=== PATIENT | male | born 1985 | race Caucasian/White ===

== ENCOUNTER 2017-06-29 09:01 | Day surgery (SDC) | payer BC, OTHER ==
[2017-06-29] MEDS ORDERED: Ondansetron 4 MG/2 ML SDV IVPUSH ONE (09:09)
[2017-06-29] MEDS ORDERED: Sodium Chloride 0.9% 1,000 ML IV ONE (09:09)
[2017-06-29] MEDS ORDERED: Ketorolac 30 MG/ML SDV IVPUSH ONE (09:09)
[2017-06-29] MEDS ORDERED: Sodium Chloride 0.9% 10 ML Syringe FLUSH PRN (09:09)
--- NOTE | 2017-06-29 09:29 | EDM.PDOC ---
ED HPI GENERAL MEDICAL PROBLEM - General Chief Complaint: Abdominal Pain Stated Complaint: ABDOMINAL PAIN Time Seen by Provider: 06/29/17 09:09 Source of Information: Reports: Patient History Limitations: Reports: No Limitations - History of Present Illness INITIAL COMMENTS - FREE TEXT/NARRATIVE: 32 y/o M with abd pain. Started 6-7 hours ago. Initially diffuse, now worse on R side. Dull. Waxes and wanes. Worse with movement. +anorexia this AM. No fever. No vomiting. No diarrhea. Normal BM today. No dysuria/hematuria. No hx similar symptoms previously. No cough/CP. Pain is currently moderate to severe. Right Abdominal Pain Score (Numeric/FACES): 4 - Related Data Allergies Allergy/AdvReac Type Severity Reaction Status Date / Time No Known Allergies Allergy Verified 06/29/17 09:12 Home Meds: Home Meds Losartan [Cozaar] 50 mg PO DAILY 06/29/17 [History] Methylphenidate [Concerta] 54 mg PO DAILY 06/29/17 [History] Topiramate [Topamax] 25 mg PO BID 06/29/17 [History] atorvaSTATin [Lipitor] 20 mg PO DAILY 06/29/17 [History] metFORMIN [Glucophage XR] 1,000 mg PO DAILY 06/29/17 [History] ED ROS GENERAL - Review of Systems Review Of Systems: See Below Constitutional: Denies: Fever Respiratory: Denies: Shortness of Breath, Cough Cardiovascular: Denies: Chest Pain Endocrine: Reports: No Symptoms GI/Abdominal: Reports: Abdominal Pain : Denies: Dysuria, Flank Pain, Hematuria Musculoskeletal: Reports: No Symptoms Neurological: Reports: No Symptoms ED EXAM, GI/ABD - Physical Exam Exam: See Below Exam Limited By: No Limitations General Appearance: Alert, WD/WN, No Apparent Distress Eyes: Bilateral: Normal Appearance Ears: Normal External Exam Nose: Normal Inspection Throat/Mouth: Normal Inspection, Normal Oropharynx, Normal Voice Head: Atraumatic, Normocephalic Neck: Normal Inspection, Supple, Non-Tender Respiratory/Chest: No Respiratory Distress, Lungs Clear, No Accessory Muscle Use , Chest Non-Tender Cardiovascular: Normal Peripheral Pulses, Regular Rate, Rhythm, No Murmur GI/Abdominal Exam: Soft, Other (diffusely tender, most tender in RLQ, +rebound, no guarding) Back Exam: Normal Inspection Extremities: Normal Inspection Neurological: Alert, Oriented Psychiatric: Normal Affect, Normal Mood Skin Exam: Warm, Dry, Normal Color, No Rash Course - Vital Signs Last Recorded V/S: Last Vital Signs Temp 36.1 C 06/29/17 09:09 Pulse 94 06/29/17 09:09 Resp 16 06/29/17 09:09 BP 127/92 H 06/29/17 09:09 Pulse Ox 100 06/29/17 09:09 - Orders/Labs/Meds Orders: Active Orders 24 hr Category Date Time Status Peripheral IV Care [RC] . DIRECTED Care 06/29/17 09:09 Active Morphine Med 06/29/17 09:36 Active 4 mg IVPUSH Q2H PRN Piperacillin/Tazobactam [Zosyn] 4.5 gm Med 06/29/17 11:34 Active Sodium Chloride 0.9% [Normal Saline] 100 ml IV ONETIME Sodium Chloride 0.9% [Saline Flush] Med 06/29/17 09:09 Active 10 ml FLUSH ASDIRECTED PRN Peripheral IV Insertion Adult [OM.PC] Routine Oth 06/29/17 09:09 Ordered Medication Orders Piperacillin Sod/Tazobactam (Sod 4.5 gm/ Sodium Chloride) 100 mls @ 200 mls/hr IV ONETIME ONE Stop: 06/29/17 12:03 Morphine Sulfate (Morphine) 4 mg IVPUSH Q2H PRN PRN Reason: Pain Sodium Chloride (Saline Flush) 10 ml FLUSH ASDIRECTED PRN PRN Reason: Keep Vein Open Last Admin: 06/29/17 09:35 Dose: 10 ml Labs: Laboratory Tests 06/29/17 06/29/17 06/29/17 Range/Units 09:20 09:20 10:26 WBC 15.86 H (4.23-9.07) K/mm3 RBC 5.56 (4.63-6.08) M/mm3 Hgb 15.9 (13.7-17.5) gm/L Hct 44.8 (40.1-51.0) % MCV 80.6 (79.0-92.2) fl MCH 28.6 (25.7-32.2) pg MCHC 35.5 (32.2-35.5) g/dl RDW Std Deviation 35.9 (35.1-43.9) fL Plt Count 329 (163-337) K/mm3 MPV 10.4 (9.4-12.3) fl Neut % (Auto) 74.8 H (34.0-67.9) % Lymph % (Auto) 17.0 L (21.8-53.1) % [place] % (Auto) 6.5 (5.3-12.2) % Eos % (Auto) 1.1 (0.8-7.0) Baso % (Auto) 0.3 (0.1-1.2) % Neut # (Auto) 11.88 H (1.78-5.38) K/mm3 Lymph # (Auto) 2.70 (1.32-3.57) K/mm3 [place] # (Auto) 1.03 H (0.30-0.82) K/mm3 Eos # (Auto) 0.17 (0.04-0.54) K/mm3 Baso # (Auto) 0.04 (0.01-0.08) K/mm3 Sodium 140 (136-145) mEq/L Potassium 4.0 (3.5-5.1) mEq/L Chloride 104 (98-107) mEq/L Carbon Dioxide 26 (21-32) mEq/L Anion Gap 14.0 (5-15) BUN 16 (7-18) mg/dL Creatinine 1.0 (0.7-1.3) mg/dL Est Cr Clr Drug Dosing 115.32 mL/min Estimated GFR (MDRD) > 60 (>60) mL/min BUN/Creatinine Ratio 16.0 (14-18) Glucose 107 H (74-106) mg/dL Calcium 9.0 (8.5-10.1) mg/dL Total Bilirubin 0.6 (0.2-1.0) mg/dL AST 41 H (15-37) U/L ALT 93 H (16-63) U/L Alkaline Phosphatase 91 (46-116) U/L Total Protein 8.1 (6.4-8.2) g/dl Albumin 4.5 (3.4-5.0) g/dl Globulin 3.6 gm/dL Albumin/Globulin Ratio 1.3 (1-2) Lipase 139 (73-393) U/L Urine Color Light yellow (Yellow) Urine Appearance Clear (Clear) Urine pH 6.0 (5.0-8.0) Ur Specific [place] 1.010 (1.005-1.030) Urine Protein Negative (Negative) Urine Glucose (UA) Negative (Negative) Urine Ketones Negative (Negative) Urine Occult Blood Negative (Negative) Urine Nitrite Negative (Negative) Urine Bilirubin Negative (Negative) Urine Urobilinogen 0.2 (0.2-1.0) Ur Leukocyte Esterase Negative (Negative) Urine RBC Not seen (0-5) /hpf Urine WBC Not seen (0-5) /hpf Ur Epithelial Cells 0-5 (0-5) /hpf Urine Bacteria Not seen (FEW) /hpf Urine Mucus Not seen (FEW) /hpf Meds: Medications Generic Name Dose Route Start Last Admin Trade Name Freq PRN Reason Stop Dose Admin Piperacillin Sod/Tazobactam 100 mls @ 200 mls/hr 06/29/17 11:34 Sod 4.5 gm/ Sodium Chloride IV 06/29/17 12:03 ONETIME ONE Morphine Sulfate 4 mg 06/29/17 09:36 Morphine IVPUSH Q2H PRN Pain Sodium Chloride 10 ml 06/29/17 09:09 06/29/17 09:35 Saline Flush FLUSH 10 ml ASDIRECTED PRN Administration Keep Vein Open Discontinued Medications Generic Name Dose Route Start Last Admin Trade Name Freq PRN Reason Stop Dose Admin Sodium Chloride 1,000 mls @ 1,000 mls/hr 06/29/17 09:09 06/29/17 09:33 Normal Saline IV 06/29/17 10:08 1,000 mls/hr ONETIME ONE Administration Iopamidol 100 ml 06/29/17 09:36 06/29/17 09:43 Isovue-370 (76%) IVPUSH 06/29/17 09:37 100 ml ONETIME ONE Administration Ketorolac Tromethamine 30 mg 06/29/17 09:09 06/29/17 09:34 Toradol IVPUSH 06/29/17 09:10 30 mg ONETIME ONE Administration Ondansetron HCl 4 mg 06/29/17 09:09 06/29/17 09:35 Zofran IVPUSH 06/29/17 09:10 4 mg ONETIME ONE Administration Sodium Chloride 10 ml 06/29/17 09:36 06/29/17 09:44 Saline Flush FLUSH 06/29/17 09:37 10 ml ONETIME ONE Administration - Re-Assessments/Exams Free Text/Narrative Re-Assessment/Exam: 06/29/17 11:34 CT a/p consistent with early appendicitis. WBC elevated at 15,000. Antibiotics ordered. Message left for Dr. Bob who is in the OR and will call back when able. 06/29/17 11:35 06/29/17 11:52 Departure - Departure Time of Disposition: 11:50 Disposition: DC/Tfer to [facility] Clinical Impression: Appendicitis, acute Qualifiers: Acute appendicitis type: with localized peritonitis Qualified Code(s): K35.3 - Acute appendicitis with localized peritonitis - Discharge Information Referrals: Dilip Jensen MD [Primary Care Provider] - Forms: ED Department Discharge - My Orders Last 24 Hours: My Active Orders 06/29/17 09:09 Peripheral IV Care [RC] . DIRECTED Sodium Chloride 0.9% [Saline Flush] 10 ml FLUSH ASDIRECTED PRN Peripheral IV Insertion Adult [OM.PC] Routine 06/29/17 09:36 Morphine 4 mg IVPUSH Q2H PRN 06/29/17 11:34 Piperacillin/Tazobactam [Zosyn] 4.5 gm Sodium Chloride 0.9% [Normal Saline] 100 ml IV ONETIME - Assessment/Plan Last 24 Hours: My Active Orders 06/29/17 09:09 Peripheral IV Care [RC] . DIRECTED Sodium Chloride 0.9% [Saline Flush] 10 ml FLUSH ASDIRECTED PRN Peripheral IV Insertion Adult [OM.PC] Routine 06/29/17 09:36 Morphine 4 mg IVPUSH Q2H PRN 06/29/17 11:34 Piperacillin/Tazobactam [Zosyn] 4.5 gm Sodium Chloride 0.9% [Normal Saline] 100 ml IV ONETIME
[2017-06-29] MEDS ORDERED: Iopamidol 755 Mg/ML 100 ML Bottle IVPUSH ONE (09:36)
[2017-06-29] MEDS ORDERED: Sodium Chloride 0.9% 10 ML Syringe FLUSH ONE (09:36)
[2017-06-29] MEDS ORDERED: Morphine 4 MG/ML Syringe IVPUSH PRN (09:36)
--- NOTE | 2017-06-29 10:35 | CT ---
CT abdomen and pelvis Technique: Multiple axial sections were obtained from above the dome of the diaphragm inferiorly through the pubic symphysis. Intravenous contrast was utilized. No oral contrast was given which diminishes evaluation of the bowel and processes around the bowel. Findings: Appendix is slightly prominent in size with mild inflammatory change. These findings are felt compatible with early appendicitis. Visualized lung bases show nothing acute. Liver shows diminished density compatible with fatty infiltration. Spleen appears normal. Adrenal glands show no nodule. Pancreas is within normal limits. Aorta shows no aneurysmal dilatation. Kidneys show symmetric contrast enhancement without hydronephrosis or mass. Aorta shows no aneurysmal dilatation. No retroperitoneal adenopathy or mesenteric abnormalities are seen. No pelvic mass or adenopathy is seen. Delayed images show contrast within the bladder. Bone window settings were reviewed which appear within normal limits for the patient's age. Impression: 1. Findings felt compatible with early appendicitis. 2. Liver shows fatty infiltration. 3. Other portions of the CT exam of the abdomen and pelvis appear within normal limits. Diagnostic code #5
[2017-06-29] MEDS ORDERED: Piperacillin/Tazobactam 4.5 GM in Sodium Chloride 0.9% 100 ML IV ONE (11:34)
[2017-06-29] MEDS ORDERED: Bupivacaine 0.5%/EPINEPHrine 1:200,000 50 ML MDV ONE (12:04)
[2017-06-29] MEDS ORDERED: Lidocaine 1% with EPINEPHrine 1:100,000 20 ML MDV ONE (12:04)
--- NOTE | 2017-06-29 12:18 | PCM.PREANE ---
Preanesthetic Assessment - Procedure Proposed Procedure: Lap Appendectomy - Anesthesia/Transfusion/Family Hx Anesthesia History: Prior Anesthesia Without Reaction Family History of Anesthesia Reaction: No Transfusion History: No Prior Transfusion(s) Intubation History: Unknown - Review of Systems General: No Symptoms Pulmonary: No Symptoms Cardiovascular: No Symptoms Gastrointestinal: No Symptoms, Diarrhea Neurological: No Symptoms, Numbness (bilateral hands, ) Other: Reports: Diabetes (pre-diabetes ) - Physical Assessment NPO Status Date: 06/29/17 NPO Status Time: 07:30 O2 Sat by Pulse Oximetry: 100 Respiratory Rate: 16 Vital Signs: Last Vital Signs Temp 36.1 C 06/29/17 09:09 Pulse 94 06/29/17 09:09 Resp 16 06/29/17 09:09 BP 127/92 H 06/29/17 09:09 Pulse Ox 100 06/29/17 09:09 Height: 1.83 m Weight: 97.522 kg ASA Class: 2E Mental Status: Alert & Oriented x3 Airway Class: Mallampati = 2 Dentition: Reports: Normal Dentition Thyro-Mental Finger Breadths: 3 Mouth Opening Finger Breadths: 5 ROM/Head Extension: Full Lungs: Clear to Auscultation, Normal Respiratory Effort Cardiovascular: Regular Rate, Regular Rhythm - Lab Values: Laboratory Last Values WBC 15.86 K/mm3 (4.23-9.07) H 06/29/17 09:20 RBC 5.56 M/mm3 (4.63-6.08) 06/29/17 09:20 Hgb 15.9 gm/L (13.7-17.5) 06/29/17 09:20 Hct 44.8 % (40.1-51.0) 06/29/17 09:20 MCV 80.6 fl (79.0-92.2) 06/29/17 09:20 MCH 28.6 pg (25.7-32.2) 06/29/17 09:20 MCHC 35.5 g/dl (32.2-35.5) 06/29/17 09:20 RDW Std Deviation 35.9 fL (35.1-43.9) 06/29/17 09:20 Plt Count 329 K/mm3 (163-337) 06/29/17 09:20 MPV 10.4 fl (9.4-12.3) 06/29/17 09:20 Neut % (Auto) 74.8 % (34.0-67.9) H 06/29/17 09:20 Lymph % (Auto) 17.0 % (21.8-53.1) L 06/29/17 09:20 [place] % (Auto) 6.5 % (5.3-12.2) 06/29/17 09:20 Eos % (Auto) 1.1 (0.8-7.0) 06/29/17 09:20 Baso % (Auto) 0.3 % (0.1-1.2) 06/29/17 09:20 Neut # (Auto) 11.88 K/mm3 (1.78-5.38) H 06/29/17 09:20 Lymph # (Auto) 2.70 K/mm3 (1.32-3.57) 06/29/17 09:20 [place] # (Auto) 1.03 K/mm3 (0.30-0.82) H 06/29/17 09:20 Eos # (Auto) 0.17 K/mm3 (0.04-0.54) 06/29/17 09:20 Baso # (Auto) 0.04 K/mm3 (0.01-0.08) 06/29/17 09:20 Sodium 140 mEq/L (136-145) 06/29/17 09:20 Potassium 4.0 mEq/L (3.5-5.1) 06/29/17 09:20 Chloride 104 mEq/L (98-107) 06/29/17 09:20 Carbon Dioxide 26 mEq/L (21-32) 06/29/17 09:20 Anion Gap 14.0 (5-15) 06/29/17 09:20 BUN 16 mg/dL (7-18) 06/29/17 09:20 Creatinine 1.0 mg/dL (0.7-1.3) 06/29/17 09:20 Est Cr Clr Drug Dosing 115.32 mL/min 06/29/17 09:20 Estimated GFR (MDRD) > 60 mL/min (>60) 06/29/17 09:20 BUN/Creatinine Ratio 16.0 (14-18) 06/29/17 09:20 Glucose 107 mg/dL (74-106) H 06/29/17 09:20 Calcium 9.0 mg/dL (8.5-10.1) 06/29/17 09:20 Total Bilirubin 0.6 mg/dL (0.2-1.0) 06/29/17 09:20 AST 41 U/L (15-37) H 06/29/17 09:20 ALT 93 U/L (16-63) H 06/29/17 09:20 Alkaline Phosphatase 91 U/L (46-116) 06/29/17 09:20 Total Protein 8.1 g/dl (6.4-8.2) 06/29/17 09:20 Albumin 4.5 g/dl (3.4-5.0) 06/29/17 09:20 Globulin 3.6 gm/dL 06/29/17 09:20 Albumin/Globulin Ratio 1.3 (1-2) 06/29/17 09:20 Lipase 139 U/L (73-393) 06/29/17 09:20 Urine Color Light yellow (Yellow) 06/29/17 10:26 Urine Appearance Clear (Clear) 06/29/17 10:26 Urine pH 6.0 (5.0-8.0) 06/29/17 10:26 Ur Specific [place] 1.010 (1.005-1.030) 06/29/17 10:26 Urine Protein Negative (Negative) 06/29/17 10:26 Urine Glucose (UA) Negative (Negative) 06/29/17 10:26 Urine Ketones Negative (Negative) 06/29/17 10:26 Urine Occult Blood Negative (Negative) 06/29/17 10:26 Urine Nitrite Negative (Negative) 06/29/17 10:26 Urine Bilirubin Negative (Negative) 06/29/17 10:26 Urine Urobilinogen 0.2 (0.2-1.0) 06/29/17 10:26 Ur Leukocyte Esterase Negative (Negative) 06/29/17 10:26 Urine RBC Not seen /hpf (0-5) 06/29/17 10:26 Urine WBC Not seen /hpf (0-5) 06/29/17 10:26 Ur Epithelial Cells 0-5 /hpf (0-5) 06/29/17 10:26 Urine Bacteria Not seen /hpf (FEW) 06/29/17 10:26 Urine Mucus Not seen /hpf (FEW) 06/29/17 10:26 - Allergies Allergies/Adverse Reactions: Allergies Allergy/AdvReac Type Severity Reaction Status Date / Time No Known Allergies Allergy Verified 06/29/17 09:12 - Blood Blood Available: No - Anesthesia Plan Pre-Op Medication Ordered: None - Acknowledgements Anesthesia Type Planned: General Anesthesia Pt an Appropriate Candidate for the Planned Anesthesia: Yes Alternatives and Risks of Anesthesia Discussed w Pt/Guardian: Yes Pt/Guardian Understands and Agrees with Anesthesia Plan: Yes PreAnesthesia Questionnaire - Past Health History Medical/Surgical History: Denies Medical/Surgical History Cardiovascular History: Reports: Hypertension Neurological History: Reports: Other (See Below) (pt reports ADHD) Endocrine/Metabolic History: Reports: Diabetes, Type II (pre-diabetes) - SUBSTANCE USE Smoking Status *Q: Never Smoker Recreational Drug Use History: No - HOME MEDS Home Medications: Home Meds Losartan [Cozaar] 50 mg PO DAILY 06/29/17 [History] Methylphenidate [Concerta] 54 mg PO DAILY 06/29/17 [History] Topiramate [Topamax] 25 mg PO BID 06/29/17 [History] atorvaSTATin [Lipitor] 20 mg PO DAILY 06/29/17 [History] metFORMIN [Glucophage XR] 1,000 mg PO DAILY 06/29/17 [History] - CURRENT (IN HOUSE) MEDS Current Meds: Current Medications Morphine Sulfate (Morphine) 4 mg IVPUSH Q2H PRN PRN Reason: Pain Sodium Chloride (Saline Flush) 10 ml FLUSH ASDIRECTED PRN PRN Reason: Keep Vein Open Last Admin: 06/29/17 09:35 Dose: 10 ml Discontinued Medications Sodium Chloride (Normal Saline) 1,000 mls @ 1,000 mls/hr IV ONETIME ONE Stop: 06/29/17 10:08 Last Admin: 06/29/17 09:33 Dose: 1,000 mls/hr Piperacillin Sod/Tazobactam (Sod 4.5 gm/ Sodium Chloride) 100 mls @ 200 mls/hr IV ONETIME ONE Stop: 06/29/17 12:03 Last Admin: 06/29/17 12:00 Dose: 200 mls/hr Iopamidol (Isovue-370 (76%)) 100 ml IVPUSH ONETIME ONE Stop: 06/29/17 09:37 Last Admin: 06/29/17 09:43 Dose: 100 ml Ketorolac Tromethamine (Toradol) 30 mg IVPUSH ONETIME ONE Stop: 06/29/17 09:10 Last Admin: 06/29/17 09:34 Dose: 30 mg Ondansetron HCl (Zofran) 4 mg IVPUSH ONETIME ONE Stop: 06/29/17 09:10 Last Admin: 06/29/17 09:35 Dose: 4 mg Sodium Chloride (Saline Flush) 10 ml FLUSH ONETIME ONE Stop: 06/29/17 09:37 Last Admin: 06/29/17 09:44 Dose: 10 ml
[2017-06-29] MEDS ORDERED: Propofol 200 MG/20 ML SDV ONE ×2 (12:45→12:46)
[2017-06-29] MEDS ORDERED: fentaNYL 250 MCG/5 ML SDV ONE (12:46)
[2017-06-29] MEDS ORDERED: Midazolam 1 MG/ML 2 ML SDV ONE (12:46)
[2017-06-29] MEDS ORDERED: Lidocaine 1% 4 ML ONE (12:49)
--- NOTE | 2017-06-29 12:51 | PCM.HP ---
H&P History of Present Illness - General Date of Service: 06/29/17 Admit Problem/Dx: Admission Diagnosis/Problem Admission Diagnosis/Problem Appendicitis Source of Information: Patient - History of Present Illness Initial Comments - Free Text/Narative: 32-year-old male was in his usual state of good health until early this morning at about 2 AM when he experienced periumbilical abdominal discomfort. The discomfort worsened overnight and ultimately migrated to his right lower quadrant. The pain was not associated with anorexia nausea and emesis but his told him to go to the emergency room to be seen and evaluated. He was seen by staff and a CT scan was performed which revealed acute appendicitis. I was asked to see him for surgery. Right Abdominal Pain Score (Numeric/FACES): 4 - Related Data Allergies/Adverse Reactions: Allergies Allergy/AdvReac Type Severity Reaction Status Date / Time No Known Allergies Allergy Verified 06/29/17 09:12 Home Medications: Home Meds Losartan [Cozaar] 50 mg PO DAILY 06/29/17 [History] Methylphenidate [Concerta] 54 mg PO DAILY 06/29/17 [History] Topiramate [Topamax] 25 mg PO BID 06/29/17 [History] atorvaSTATin [Lipitor] 20 mg PO DAILY 06/29/17 [History] metFORMIN [Glucophage XR] 1,000 mg PO DAILY 06/29/17 [History] Past Medical History - Past Health History Medical/Surgical History: Denies Medical/Surgical History Cardiovascular History: Reports: Hypertension Neurological History: Reports: Other (See Below) (pt reports ADHD) Endocrine/Metabolic History: Reports: Diabetes, Type II (pre-diabetes) Social & Family History - Tobacco Use Smoking Status *Q: Never Smoker - Caffeine Use Caffeine Use: Reports: Coffee - Recreational Drug Use Recreational Drug Use: No H&P Review of Systems - Review of Systems: Review Of Systems: ROS reveals no pertinent complaints other than HPI. Exam - Exam Exam: See Below - Vital Signs Vital Signs: Last Vital Signs Temp 36.1 C 06/29/17 09:09 Pulse 94 06/29/17 09:09 Resp 16 06/29/17 12:21 BP 127/92 H 06/29/17 09:09 Pulse Ox 100 06/29/17 12:21 Weight: 97.522 kg - Exam General: Alert, Oriented, Cooperative HEENT: EOMI, Hearing Intact Neck: Supple, Trachea Midline Lungs: Clear to Auscultation, Normal Respiratory Effort Cardiovascular: Regular Rate, Regular Rhythm, Normal S1, Normal S2 GI/Abdominal Exam: Other (Right lower quadrant abdominal tenderness) (Male) Exam: Deferred Rectal (Males) Exam: Deferred Skin: Warm, Dry, Intact Neuro Extensive - Mental Status: Alert, Oriented x3, Normal Mood/Affect Psychiatric: Alert, Normal Affect, Normal Mood - Patient Data Lab Results Last 24 hrs: Laboratory Results - last 24 hr 06/29/17 06/29/17 06/29/17 Range/Units 09:20 09:20 10:26 WBC 15.86 H (4.23-9.07) K/mm3 RBC 5.56 (4.63-6.08) M/mm3 Hgb 15.9 (13.7-17.5) gm/L Hct 44.8 (40.1-51.0) % MCV 80.6 (79.0-92.2) fl MCH 28.6 (25.7-32.2) pg MCHC 35.5 (32.2-35.5) g/dl RDW Std Deviation 35.9 (35.1-43.9) fL Plt Count 329 (163-337) K/mm3 MPV 10.4 (9.4-12.3) fl Neut % (Auto) 74.8 H (34.0-67.9) % Lymph % (Auto) 17.0 L (21.8-53.1) % [place] % (Auto) 6.5 (5.3-12.2) % Eos % (Auto) 1.1 (0.8-7.0) Baso % (Auto) 0.3 (0.1-1.2) % Neut # (Auto) 11.88 H (1.78-5.38) K/mm3 Lymph # (Auto) 2.70 (1.32-3.57) K/mm3 [place] # (Auto) 1.03 H (0.30-0.82) K/mm3 Eos # (Auto) 0.17 (0.04-0.54) K/mm3 Baso # (Auto) 0.04 (0.01-0.08) K/mm3 Sodium 140 (136-145) mEq/L Potassium 4.0 (3.5-5.1) mEq/L Chloride 104 (98-107) mEq/L Carbon Dioxide 26 (21-32) mEq/L Anion Gap 14.0 (5-15) BUN 16 (7-18) mg/dL Creatinine 1.0 (0.7-1.3) mg/dL Est Cr Clr Drug Dosing 115.32 mL/min Estimated GFR (MDRD) > 60 (>60) mL/min BUN/Creatinine Ratio 16.0 (14-18) Glucose 107 H (74-106) mg/dL Calcium 9.0 (8.5-10.1) mg/dL Total Bilirubin 0.6 (0.2-1.0) mg/dL AST 41 H (15-37) U/L ALT 93 H (16-63) U/L Alkaline Phosphatase 91 (46-116) U/L Total Protein 8.1 (6.4-8.2) g/dl Albumin 4.5 (3.4-5.0) g/dl Globulin 3.6 gm/dL Albumin/Globulin Ratio 1.3 (1-2) Lipase 139 (73-393) U/L Urine Color Light yellow (Yellow) Urine Appearance Clear (Clear) Urine pH 6.0 (5.0-8.0) Ur Specific [place] 1.010 (1.005-1.030) Urine Protein Negative (Negative) Urine Glucose (UA) Negative (Negative) Urine Ketones Negative (Negative) Urine Occult Blood Negative (Negative) Urine Nitrite Negative (Negative) Urine Bilirubin Negative (Negative) Urine Urobilinogen 0.2 (0.2-1.0) Ur Leukocyte Esterase Negative (Negative) Urine RBC Not seen (0-5) /hpf Urine WBC Not seen (0-5) /hpf Ur Epithelial Cells 0-5 (0-5) /hpf Urine Bacteria Not seen (FEW) /hpf Urine Mucus Not seen (FEW) /hpf Result Diagrams: 06/29/17 09:20 06/29/17 09:20 *Q Meaningful Use (ADM) - VTE *Q VTE Criteria *Q: - Stroke *Q Stroke Criteria *Q: - AMI *Q AMI Criteria *Q: - Problem List (1) Appendicitis, acute SNOMED Code(s): 96678056 ICD Code: K35.80 - UNSPECIFIED ACUTE APPENDICITIS Status: Acute Current Visit: Yes Qualifiers: Acute appendicitis type: with localized peritonitis Qualified Code(s): K35.3 - Acute appendicitis with localized peritonitis Problem List Initiated/Reviewed/Updated: Yes Orders Last 24hrs: Active Orders 24 hr Category Date Time Status Patient Status [ADT] Routine ADT 06/29/17 12:31 Active Peripheral IV Care [RC] . DIRECTED Care 06/29/17 09:09 Active Morphine Med 06/29/17 09:36 Active 4 mg IVPUSH Q2H PRN Sodium Chloride 0.9% [Saline Flush] Med 06/29/17 09:09 Active 10 ml FLUSH ASDIRECTED PRN Peripheral IV Insertion Adult [OM.PC] Routine Oth 06/29/17 09:09 Ordered Schedule Procedure [COMM] Stat Oth 06/29/17 12:08 Ordered Medication Orders Morphine Sulfate (Morphine) 4 mg IVPUSH Q2H PRN PRN Reason: Pain Sodium Chloride (Saline Flush) 10 ml FLUSH ASDIRECTED PRN PRN Reason: Keep Vein Open Last Admin: 06/29/17 09:35 Dose: 10 ml Assessment/Plan Comment:: Acute appendicitis. Plan laparoscopic possible open appendectomy.
[2017-06-29] MEDS ORDERED: Rocuronium 50 MG/5 ML Vial ONE (12:53)
[2017-06-29] MEDS ORDERED: Succinylcholine 200 MG/10 ML MDV ONE (12:53)
[2017-06-29] MEDS ORDERED: Lactated Ringers 1,000 ML ONE (13:04)
[2017-06-29] MEDS ORDERED: Ondansetron 4 MG/2 ML SDV ONE (13:36)
[2017-06-29] MEDS ORDERED: Labetalol 100 MG/20 ML MDV ONE (13:36)
[2017-06-29] MEDS ORDERED: Dexamethasone 4 MG/ML 5 ML MDV ONE (13:36)
[2017-06-29] MEDS ORDERED: Ketorolac 30 MG/ML SDV ONE (13:36)
[2017-06-29] MEDS ORDERED: Ketamine 500 mg/10 ML MDV ONE (13:37)
[2017-06-29] MEDS ORDERED: fentaNYL 100 MCG/2 ML SDV ONE ×2 (13:39→14:14)
--- NOTE | 2017-06-29 13:45 | PCM.OPNOTE ---
- General Post-Op/Procedure Note Date of Surgery/Procedure: 06/29/17 Operative Procedure(s): Laparoscopic appendectomy Findings: Acute appendicitis Pre Op Diagnosis: Acute appendicitis Post-Op Diagnosis: Acute appendicitis Anesthesia Technique: General ET Tube, Local Primary Surgeon: Jamie Bob Pathology: Appendix EBL in mLs: 2 Complications: None Condition: Good Free Text/Narrative:: After adequate general endotracheal tube anesthesia was obtained the patient's abdomen was prepped and draped for a laparoscopic appendectomy. A supraumbilical incision was made followed by insertion of a 12 mm camera port after local analgesia was given to obtain CO2 pneumoperitoneum. A 5 mm working port was placed in the suprapubic region and the left lower quadrant. The appendix was grasped and I made a window in the appendiceal mesentery. Staple loads were fired across the appendiceal base and the mesentery. The appendix was placed in a bag and removed the umbilicus. I irrigated out the right lower quadrant and pelvis. I decannulated the abdomen under direct vision with no bleeding from the port sites. Vicryl was used to close the umbilical incision subcutaneous tissues and skin. Steri-Strips and gauze were used for the dressing. Photographs were taken for the patient and for the medical record.
[2017-06-29] MEDS ORDERED: Neostigmine Methylsulfate 10 MG/10 ML MDV ONE (13:49)
[2017-06-29] MEDS ORDERED: Glycopyrrolate 0.2 MG/ML SDV ONE (13:49)
[2017-06-29] MEDS ORDERED: Meperidine PF 50 MG/ML Syringe IVPUSH PRN (14:06)
[2017-06-29] MEDS ORDERED: Ondansetron 4 MG/2 ML SDV IVPUSH PRN (14:06)
[2017-06-29] MEDS ORDERED: HYDROmorphone 0.5 MG/0.5 ML Syringe IVPUSH PRN (14:06)
[2017-06-29] MEDS ORDERED: diphenhydrAMINE 50 MG/ML SDV IVPUSH PRN (14:06)
[2017-06-29] MEDS ORDERED: fentaNYL 100 MCG/2 ML SDV IVPUSH PRN (14:06)
--- NOTE | 2017-06-29 14:09 | PCM.POSTAN ---
POST ANESTHESIA ASSESSMENT - MENTAL STATUS Mental Status: Other (drowsy ) - VITAL SIGNS Pulse Rate: 112 SaO2: 98 Resp Rate: 21 Blood Pressure: 108/56 Temperature: 97.7 C - RESPIRATORY Respiratory Status: Respiratory Rate WNL, Airway Patent, O2 Saturation Stable - CARDIOVASCULAR CV Status: Pulse Rate WNL, Blood Pressure Stable - GASTROINTESTINAL GI Status: No Symptoms - PAIN Pain Score: 0 - POST OP HYDRATION Hydration Status: Adequate & Stable
[2017-06-29] MEDS ORDERED: Acetaminophen/oxyCODONE 325-5 MG Tab PO ONE (15:31)
[2017-06-29] MEDS ORDERED: Lactated Ringers 1,000 ML IV SCH (17:15)
[2017-07-02 09:42] VITALS: BP 108/56
--- NOTE | 2017-07-02 09:42 | PCM48HPAN ---
Post Anesthesia Note - EVALUATION WITHIN 48HRS OF ANESTHETIC Vital Signs in Normal Range: Yes Patient Participated in Evaluation: Yes Respiratory Function Stable: Yes Airway Patent: Yes Cardiovascular Function Stable: Yes Hydration Status Stable: Yes Pain Control Satisfactory: Yes Nausea and Vomiting Control Satisfactory: Yes Mental Status Recovered: Yes Pulse Rate: 112 Resp Rate: 16 Temperature: 97.7 C Blood Pressure: 108/56 - COMMENTS/OBSERVATIONS Free Text/Narrative:: report from [employer]PERVISOR patient did well
== END 2017-06-29 18:15 | disposition home or self-care (01) ==
LOC: JD.ED 09:01 → JD.SDS 12:06
PROVIDERS: ATTEND Surgery
DX: K35.3 Acute appendicitis with localized peritonitis (principal); I10 Essential (primary) hypertension; E11.9 Type 2 diabetes mellitus without complications; Z79.899 Other long term (current) drug therapy; Z79.84 Long term (current) use of oral hypoglycemic drugs
CPT/HCPCS: 36415; 44970; 74177; 80053; 81001; 83690; 85025; 96361; 96365; 96375; 99285; A9270; J0330; J1100; J1170; J1885; J2250; J2405; J2543; J2710; J3010; J3490; J7030; J7040; J7050; J7120; Q9967; 00840; C9399; J2704

== ENCOUNTER 2022-02-02 18:53 | Emergency (ER) | payer OTHER | END 2022-02-02 19:59 | LOC: JD.ED 18:53 | DX: Z53.21 Procedure and treatment not carried out due to patient leaving prior to being seen by health care provider (principal) ==

== ENCOUNTER 2022-02-03 09:31 | Emergency (ER) | payer OTHER ==
[2022-02-03 09:47] VITALS: BP 152/85; PULSE 85
[2022-02-03] MEDS ORDERED: Ketorolac 30 MG/ML SDV IM ONE (10:11)
[2022-02-03] MEDS ORDERED: Ketorolac 30 MG/ML SDV ONE (10:12)
[2022-02-03] MEDS ORDERED: Acetaminophen/oxyCODONE 325-5 MG Tab PO ONE (11:00)
== END 2022-02-03 13:14 | disposition home or self-care (01) ==
LOC: JD.ED 09:31
DX: M54.50 Low back pain, unspecified (principal); I10 Essential (primary) hypertension; E11.9 Type 2 diabetes mellitus without complications; Z79.899 Other long term (current) drug therapy; Z79.84 Long term (current) use of oral hypoglycemic drugs
CPT/HCPCS: 74176; 81001; 96372; 99284; A9270; J1885